=== PATIENT | male | born 1955 | race Caucasian/White ===

== ENCOUNTER 2018-07-09 23:12 | Emergency (ER) | payer OTHER ==
[2018-07-09 23:46] LABS: BASO # 0.1 10^3/uL (0.0-0.2); BASO % 0.9 % (0.0-1.0); EOS # 0.3 10^3/uL (0.0-0.50); EOS % 3.5 % (0.0-3.0); HEMATOCRIT 39.2 % (42.0-52.0); HEMOGLOBIN 13.2 g/dl (13.5-17.5); IMMATURE GRANULOCYTE % 0.7 % (0-3.0); LYMPH # 2.5 10^3/uL (1.5-4.5); LYMPH % 33.5 % (24.0-44.0); MEAN CORPUSCULAR HEMOGLOBIN 30.6 pg (27.0-33.0); MEAN CORPUSCULAR HGB CONC 33.7 g/dl (32.0-36.5); MEAN CORPUSCULAR VOLUME 90.7 fl (80.0-96.0); MONO # 0.5 10^3/uL (0.0-0.8); MONO % 7.3 % (0.0-5.0); NEUTROPHILS % 54.1 % (36.0-66.0); PLATELET COUNT, AUTOMATED 247 10^3/uL (150-450); RED BLOOD COUNT 4.32 10^6/uL (4.30-6.10); RED CELL DISTRIBUTION WIDTH 13.3 % (11.5-14.5); WHITE BLOOD COUNT 7.4 10^3/uL (4.0-10.0)
[2018-07-09] MEDS: NS 500 ML IV (23:56)
[2018-07-09 23:57] LABS: INR 0.98; PROTHROMBIN TIME 13.1 SECONDS (12.1-14.4)
[2018-07-09 23:58] LABS: PARTIAL THROMBOPLASTIN TIME 26.2 SECONDS (25.4-37.6)
[2018-07-10 00:13] LABS: ANION GAP 11 MEQ/L (8-16); BLOOD UREA NITROGEN 12 MG/DL (7-18); CALCIUM LEVEL 8.2 MG/DL (8.8-10.2); CARBON DIOXIDE LEVEL 25 MEQ/L (21-32); CHLORIDE LEVEL 105 MEQ/L (98-107); CPK CREATINE PHOSPHOKINASE 162 U/L (39-308); ETHYL ALCOHOL (ETHANOL) 0.031 % (0.000-0.010); FREE THYROXINE INDEX 3.1 % (1.4-3.8); GLOMERULAR FILTRATION RATE > 60.0 (>49); GLUCOSE, FASTING 98 MG/DL (70-100); MAGNESIUM LEVEL 1.9 MG/DL (1.8-2.4); MB/CK RELATIVE INDEX 11.11 (< OR =4); POTASSIUM SERUM 3.8 MEQ/L (3.5-5.1); SODIUM LEVEL 141 MEQ/L (136-145); T UPTAKE 36 % (33-40); THYROXINE (T4) 8.5 UG/DL (4.5-12.0); TROPONIN I 1.37 NG/ML (< 0.10)
[2018-07-10] MEDS: ASPIRIN 325 MG TAB PO (00:38)
[2018-07-10] MEDS: CLOPIDOGREL 300 MG TAB (PLAVIX) PO (00:38)
[2018-07-10] MEDS: METOPROLOL TART 25 MG TABLET PO (00:39)
[2018-07-10] MEDS: HEPARIN DRIP 25,000 UNITS in APPROPRIATE DILUENT 1 EA IV (00:55)
[2018-07-10] MEDS: HEPARIN SOD (PORCINE) 5000 UNITS/ML VIAL IV (00:56)
== END 2018-07-10 02:52 | disposition short-term general hospital (02) ==
LOC: M ED 23:12
DX: I21.4 Non-ST elevation (NSTEMI) myocardial infarction (principal); Z72.0 Tobacco use
CPT/HCPCS: 71045

== ENCOUNTER → 2018-07-21 | Outpatient (CLI) | payer OTHER ==
[2018-07-21 12:40] LABS: INR 1.69; PROTHROMBIN TIME 20.2 SECONDS (12.1-14.4)
== END ==
LOC: M WUC 10:36
DX: Z51.81 Encounter for therapeutic drug level monitoring (principal); Z79.01 Long term (current) use of anticoagulants
CPT/HCPCS: 85610

== ENCOUNTER → 2018-07-23 | Outpatient (REF) | payer OTHER ==
[2018-07-23 17:05] LABS: ANION GAP 4 MEQ/L (8-16); BLOOD UREA NITROGEN 19 MG/DL (7-18); CALCIUM LEVEL 8.9 MG/DL (8.8-10.2); CARBON DIOXIDE LEVEL 32 MEQ/L (21-32); CHLORIDE LEVEL 97 MEQ/L (98-107); CREATININE FOR GFR 0.91 MG/DL (0.70-1.30); GLOMERULAR FILTRATION RATE > 60.0 (>49); GLUCOSE, FASTING 100 MG/DL (70-100); SODIUM LEVEL 133 MEQ/L (136-145)
== END ==
LOC: M LAB REF 16:21
DX: I21.4 Non-ST elevation (NSTEMI) myocardial infarction (principal)
CPT/HCPCS: 80048

== ENCOUNTER → 2018-07-26 | Outpatient (REF) | payer OTHER ==
[2018-07-26 16:48] LABS: ANION GAP 8 MEQ/L (8-16); BLOOD UREA NITROGEN 21 MG/DL (7-18); CALCIUM LEVEL 8.7 MG/DL (8.8-10.2); CARBON DIOXIDE LEVEL 29 MEQ/L (21-32); CHLORIDE LEVEL 100 MEQ/L (98-107); CREATININE FOR GFR 1.17 MG/DL (0.70-1.30); GLOMERULAR FILTRATION RATE > 60.0 (>49); GLUCOSE, FASTING 142 MG/DL (70-100); POTASSIUM SERUM 4.7 MEQ/L (3.5-5.1); SODIUM LEVEL 137 MEQ/L (136-145)
== END ==
LOC: M LAB REF 16:25
DX: I21.4 Non-ST elevation (NSTEMI) myocardial infarction (principal)

== ENCOUNTER → 2018-07-27 | Outpatient (REF) | payer OTHER ==
[2018-07-27 13:34] LABS: ANION GAP 5 MEQ/L (8-16); BLOOD UREA NITROGEN 19 MG/DL (7-18); CALCIUM LEVEL 9.2 MG/DL (8.8-10.2); CARBON DIOXIDE LEVEL 30 MEQ/L (21-32); CHLORIDE LEVEL 98 MEQ/L (98-107); CREATININE FOR GFR 0.97 MG/DL (0.70-1.30); GLOMERULAR FILTRATION RATE > 60.0 (>49); GLUCOSE, FASTING 93 MG/DL (70-100); POTASSIUM SERUM 4.7 MEQ/L (3.5-5.1); SODIUM LEVEL 133 MEQ/L (136-145)
== END ==
LOC: M LAB REF 12:25
DX: E87.5 Hyperkalemia (principal)
CPT/HCPCS: 80048

== ENCOUNTER → 2018-07-27 | Outpatient (REF) | payer OTHER ==
[2018-07-27 13:19] LABS: PROTHROMBIN TIME 25.8 SECONDS (12.1-14.4)
== END ==
LOC: M LAB REF 12:23
DX: I48.91 Unspecified atrial fibrillation (principal)
CPT/HCPCS: 85610

== ENCOUNTER → 2018-08-12 | Outpatient (REF) | payer OTHER ==
[2018-08-12 12:13] LABS: INR 1.17; PROTHROMBIN TIME 15.1 SECONDS (12.1-14.4)
== END ==
LOC: M LAB REF 11:36
DX: I48.91 Unspecified atrial fibrillation (principal)

== ENCOUNTER 2018-08-14 09:30 | Emergency (ER) | payer OTHER ==
[2018-08-14] MEDS: METOPROLOL 5 MG/5 ML VIAL IV (10:15)
[2018-08-14] MEDS: AMIODARONE HCL 150 MG in APPROPRIATE DILUENT 1 EA IV ×2 (10:29→11:22)
[2018-08-14] MEDS: NS 500 ML IV (10:37)
[2018-08-14 10:55] LABS: BASO # 0.1 10^3/uL (0.0-0.2); EOS # 0.2 10^3/uL (0.0-0.50); EOS % 1.7 % (0.0-3.0); HEMATOCRIT 39.1 % (42.0-52.0); HEMOGLOBIN 12.7 g/dl (13.5-17.5); IMMATURE GRANULOCYTE % 0.4 % (0-3.0); LYMPH # 2.6 10^3/uL (1.5-4.5); LYMPH % 26.5 % (24.0-44.0); MEAN CORPUSCULAR HEMOGLOBIN 29.5 pg (27.0-33.0); MEAN CORPUSCULAR HGB CONC 32.5 g/dl (32.0-36.5); MEAN CORPUSCULAR VOLUME 90.7 fl (80.0-96.0); MONO # 0.8 10^3/uL (0.0-0.8); MONO % 8.1 % (0.0-5.0); NEUTROPHILS # 6.1 10^3/uL (1.8-7.7); NEUTROPHILS % 62.3 % (36.0-66.0); PLATELET COUNT, AUTOMATED 280 10^3/uL (150-450); RED BLOOD COUNT 4.31 10^6/uL (4.30-6.10); RED CELL DISTRIBUTION WIDTH 12.8 % (11.5-14.5); WHITE BLOOD COUNT 9.8 10^3/uL (4.0-10.0)
[2018-08-14 11:06] LABS: INR 1.56
[2018-08-14 11:09] LABS: ALBUMIN 3.8 GM/DL (3.2-5.2); ALBUMIN/GLOBULIN RATIO 1.06 (1.00-1.93); ALKALINE PHOSPHATASE 112 U/L (45-117); ALT/SGPT 103 U/L (12-78); ANION GAP 8 MEQ/L (8-16); AST/SGOT 52 U/L (7-37); BILIRUBIN,DIRECT < 0.1 MG/DL (0.0-0.2); BILIRUBIN,TOTAL 0.3 MG/DL (0.2-1.0); BLOOD UREA NITROGEN 19 MG/DL (7-18); CALCIUM LEVEL 9.1 MG/DL (8.8-10.2); CARBON DIOXIDE LEVEL 27 MEQ/L (21-32); CHLORIDE LEVEL 100 MEQ/L (98-107); CPK CREATINE PHOSPHOKINASE 47 U/L (39-308); CREATININE FOR GFR 1.15 MG/DL (0.70-1.30); GLOMERULAR FILTRATION RATE > 60.0 (>49); GLUCOSE, FASTING 134 MG/DL (70-100); LIPASE 161 U/L (73-393); MAGNESIUM LEVEL 2.1 MG/DL (1.8-2.4); MB/CK RELATIVE INDEX 5.32 (< OR =4); POTASSIUM SERUM 4.8 MEQ/L (3.5-5.1); SODIUM LEVEL 135 MEQ/L (136-145); TOTAL PROTEIN 7.4 GM/DL (6.4-8.2); TROPONIN I 0.04 NG/ML (< 0.10)
[2018-08-14] MEDS: NS 1,000 ML IV (13:00)
[2018-08-14] MEDS ORDERED: fentaNYL 100 MCG/2 ML INJECTION (J3010) IV ×2 (13:00→13:30)
[2018-08-14] MEDS: fentaNYL 100 MCG/2 ML INJECTION (J3010) IV (13:09)
[2018-08-14] MEDS: MIDAZOLAM INJ 2 MG/2 ML VIAL (J2250) IV (13:11)
== END 2018-08-14 15:01 | disposition home or self-care (01) ==
LOC: M ED 09:30
DX: I48.92 Unspecified atrial flutter (principal); I51.7 Cardiomegaly; I44.7 Left bundle-branch block, unspecified; I51.9 Heart disease, unspecified; Z95.2 Presence of prosthetic heart valve; Z95.1 Presence of aortocoronary bypass graft; Z79.01 Long term (current) use of anticoagulants; Z79.899 Other long term (current) drug therapy
CPT/HCPCS: J2250

== ENCOUNTER → 2018-09-09 | Outpatient (REF) | payer OTHER ==
[~2018-09-09] MED LIST: AMIO200T PO; CARV3.12 PO; DOCU100C16; WARF05TA PO
[2018-09-09 15:02] LABS: INR 1.62; PROTHROMBIN TIME 19.5 SECONDS (12.1-14.4)
== END ==
LOC: M LAB REF 13:22
PROVIDERS: ATTEND Internal Medicine Interventional Cardiology
DX: I48.91 Unspecified atrial fibrillation (principal); Z48.812 Encounter for surgical aftercare following surgery on the circulatory system

== ENCOUNTER → 2018-09-23 | Outpatient (CLI) | payer OTHER ==
[2018-09-23 10:40] LABS: INR 1.32; PROTHROMBIN TIME 16.6 SECONDS (12.1-14.4)
== END ==
LOC: M LAB 10:05
PROVIDERS: ATTEND Internal Medicine Interventional Cardiology
DX: Z79.01 Long term (current) use of anticoagulants (principal)

== ENCOUNTER → 2018-10-04 | Outpatient (CLI) | payer OTHER ==
--- NOTE | 2018-10-04 17:59 | ECHO ---
DATE OF PROCEDURE: 10/04/2018 REFERRING PHYSICIAN: Dr. Mathew Boyer INDICATION: NonSTEMI. Height 177 cm Weight 63 kg DIMENSIONS: IVS 1.0 LV 5.4 LVPW 1.0 LA 4.0 Aorta 3.1 IVC 1.6 Left atrial volume index 25 Mitral E wave velocity 98, A-wave 129 E prime septal 5.1, E prime lateral 12.8 FINDINGS: The study is of good technical quality. The patient is in sinus rhythm. Left ventricle is of normal size. There are extensive wall motion abnormalities. Distal septum, apex and small segment of distal anterior wall appear to be severely hypokinetic. There is akinesis almost dyskinesis of basal and mid-inferior wall and basal inferoseptal wall. Remaining left ventricular segments appear to have preserved contractility. I estimate LVEF around 40-45%. Right ventricle is normal size and systolic function. Left atrium is normal size, right atrium was poorly visualized but grossly appears normal as well. Aortic valve is normal. There appears to be a mitral annuloplasty ring present. Visualization was somewhat limited but the valve itself appears to have normal mobility. Tricuspid valve appears normal. Pulmonic valve was not well seen but based on limited views appears normal. No pericardial effusion is noted. Inferior vena cava is normal size. Aortic root is normal. Aortic arch and abdominal aorta also appear normal. Doppler interrogation of aortic valve reveals no stenosis or insufficiency. There is mild mitral insufficiency. The gradient across mitral valve was mean 3 mmHg and peak 9 mmHg. This represents trivial functional mitral stenosis. There is trace tricuspid insufficiency. Calculated pulmonary artery pressure is within normal limits, but quality of TR jet was poor and this should not be considered completely reliable. Pulmonic valve is functionally competent. Mitral inflow pattern and tissue Doppler imaging of mitral annulus reveal grade 1 diastolic dysfunction. CONCLUSIONS: 1. Study is of good technical quality. 2. Normal LV size with segmental wall motion abnormalities as noted above and overall LVEF estimated at 40-45%. 3. Normal aortic valve. 4. Likely status post mitral valve repair with mild insufficiency and trivial stenosis. 5. Normal central venous pressure and likely normal pulmonary artery pressure under COMMENT: SBE prophylaxis is recommended. MTDD
== END ==
LOC: M CARPUL 09:15
PROVIDERS: ATTEND Internal Medicine Interventional Cardiology
DX: I21.4 Non-ST elevation (NSTEMI) myocardial infarction (principal); I25.10 Atherosclerotic heart disease of native coronary artery without angina pectoris; I34.0 Nonrheumatic mitral (valve) insufficiency

== ENCOUNTER → 2018-10-05 | Outpatient (CLI) | payer OTHER ==
[2018-10-05 12:35] LABS: INR 1.32; PROTHROMBIN TIME 16.6 SECONDS (12.1-14.4)
== END ==
LOC: M WUC 10:38
PROVIDERS: ATTEND Internal Medicine Interventional Cardiology
DX: I48.0 Paroxysmal atrial fibrillation (principal)

== ENCOUNTER → 2018-10-21 | Outpatient (CLI) | payer OTHER ==
[2018-10-21 13:49] LABS: INR 1.45; PROTHROMBIN TIME 17.9 SECONDS (12.1-14.4)
== END ==
LOC: M WUC 10:58
PROVIDERS: ATTEND Internal Medicine Interventional Cardiology
DX: I48.0 Paroxysmal atrial fibrillation (principal)

== ENCOUNTER → 2018-11-04 | Outpatient (CLI) | payer OTHER ==
[2018-11-04 13:29] LABS: BLOOD UREA NITROGEN 20 MG/DL (7-18); CALCIUM LEVEL 9.1 MG/DL (8.8-10.2); CARBON DIOXIDE LEVEL 28 MEQ/L (21-32); CHLORIDE LEVEL 105 MEQ/L (98-107); CREATININE FOR GFR 0.94 MG/DL (0.70-1.30); GLOMERULAR FILTRATION RATE > 60.0 (>49); GLUCOSE, FASTING 98 MG/DL (70-100); POTASSIUM SERUM 4.5 MEQ/L (3.5-5.1); SODIUM LEVEL 141 MEQ/L (136-145)
== END ==
LOC: M WUC 08:39
PROVIDERS: ATTEND Nurse Practitioner
DX: I48.91 Unspecified atrial fibrillation (principal)

== ENCOUNTER → 2018-11-18 | Outpatient (CLI) | payer OTHER ==
[2018-11-18 13:41] LABS: INR 1.32; PROTHROMBIN TIME 16.6 SECONDS (12.1-14.4)
== END ==
LOC: M WUC 09:10
PROVIDERS: ATTEND Internal Medicine Interventional Cardiology
DX: I48.0 Paroxysmal atrial fibrillation (principal)

== ENCOUNTER → 2018-11-25 | Outpatient (CLI) | payer OTHER ==
[2018-11-25 10:03] LABS: INR 1.35; PROTHROMBIN TIME 16.9 SECONDS (12.1-14.4)
== END ==
LOC: M WUC 08:23
PROVIDERS: ATTEND Internal Medicine Interventional Cardiology
DX: I48.0 Paroxysmal atrial fibrillation (principal)

== ENCOUNTER → 2018-12-08 | Outpatient (CLI) | payer OTHER ==
[2018-12-08 12:56] LABS: INR 1.74; PROTHROMBIN TIME 20.6 SECONDS (12.1-14.4)
== END ==
LOC: M WUC 08:31
PROVIDERS: ATTEND Internal Medicine Interventional Cardiology
DX: I48.0 Paroxysmal atrial fibrillation (principal)

== ENCOUNTER → 2019-01-14 | Outpatient (CLI) | payer OTHER ==
[2019-01-14 13:25] LABS: INR 1.97; PROTHROMBIN TIME 22.8 SECONDS (12.1-14.4)
== END ==
LOC: M WUC 09:36
PROVIDERS: ATTEND Internal Medicine Interventional Cardiology
DX: I48.0 Paroxysmal atrial fibrillation (principal)

== ENCOUNTER → 2019-02-16 | Outpatient (CLI) | payer OTHER ==
[2019-02-16 13:27] LABS: INR 1.57
== END ==
LOC: M WUC 09:01
PROVIDERS: ATTEND Internal Medicine Interventional Cardiology
DX: I48.0 Paroxysmal atrial fibrillation (principal)

== ENCOUNTER → 2019-02-24 | Outpatient (CLI) | payer OTHER ==
[2019-02-24 13:13] LABS: INR 1.76; PROTHROMBIN TIME 20.3 SECONDS (11.8-14.0)
== END ==
LOC: M WUC 09:39
PROVIDERS: ATTEND Internal Medicine Interventional Cardiology
DX: I48.0 Paroxysmal atrial fibrillation (principal)

== ENCOUNTER → 2019-03-21 | Outpatient (CLI) | payer OTHER ==
[~2019-03-21] MED LIST changes: +ATOR40TA75; +XARE20TA
[2019-03-21 12:37] LABS: CHOLESTEROL RISK RATIO 2.625 (<5)
== END ==
LOC: M WUC 08:28
PROVIDERS: ATTEND Nurse Practitioner Adult Health
DX: I25.10 Atherosclerotic heart disease of native coronary artery without angina pectoris (principal); Z98.890 Other specified postprocedural states; E78.00 Pure hypercholesterolemia, unspecified

== ENCOUNTER 2019-05-30 09:14 | Emergency (ER) | payer OTHER ==
[~2019-05-30] VITALS: Ht 177.8 cm; Wt 74.0 kg
[~2019-05-30 09:14] MED LIST changes: -ATOR40TA75; -XARE20TA
[2019-05-30] MEDS ORDERED: ATOR40TA75 (09:34)
[2019-05-30] MEDS ORDERED: XARE20TA (09:34)
[2019-05-30] MEDS ORDERED: MIDAZOLAM INJ 5 MG/ML VIAL (J2250) As Ordered ONE ×2 (09:39→09:53)
[2019-05-30] MEDS ORDERED: ONDANSETRON 4MG/2ML VIAL (J2405) As Ordered ONE (09:46)
[2019-05-30 09:50] LABS: BASO # 0.1 10^3/uL (0.0-0.2); BASO % 0.8 % (0.0-1.0); EOS # 0.1 10^3/uL (0.0-0.5); EOS % 0.4 % (0.0-3.0); HEMOGLOBIN 14.9 g/dl (13.5-17.5); LYMPH # 2.8 10^3/uL (1.5-5.0); LYMPH % 23.8 % (24.0-44.0); MEAN CORPUSCULAR HEMOGLOBIN 30.5 pg (27.0-33.0); MEAN CORPUSCULAR HGB CONC 33.9 g/dl (32.0-36.5); MONO # 1.2 10^3/uL (0.0-0.8); NEUTROPHILS # 7.5 10^3/uL (1.5-8.5); NEUTROPHILS % 64.4 % (36.0-66.0); PLATELET COUNT, AUTOMATED 235 10^3/uL (150-450); RED BLOOD COUNT 4.89 10^6/uL (4.30-6.10); WHITE BLOOD COUNT 11.7 10^3/uL (4.0-10.0)
[2019-05-30] MEDS ORDERED: MIDAZOLAM INJ 2 MG/2 ML VIAL (J2250) IV STA (09:56)
[2019-05-30] MEDS ORDERED: NS 250 ML IV ONE (10:00)
[2019-05-30] MEDS ORDERED: MIDAZOLAM INJ 2 MG/2 ML VIAL (J2250) IV ONE (10:00)
[2019-05-30 10:03] LABS: INR 1.53; PROTHROMBIN TIME 18.1 SECONDS (11.8-14.0)
--- NOTE | 2019-05-30 10:09 | REP ---
CHEST, SINGLE VIEW: Single view of the chest is performed and compared to a prior study 08/14/2018. There is chronic elevation of the left hemidiaphragm with mild fibrotic changes at the left base. No acute infiltrate is seen. Heart is normal is normal in size. Mediastinal silhouette is unremarkable and unchanged. There are multiple sternal wires present. IMPRESSION: Chronic changes left base. No acute infiltrate. Electronically Signed by Sonu Peralta MD 05/31/2019 09:51 A
[2019-05-30 10:31] LABS: BILIRUBIN,DIRECT 0.2 MG/DL (0.0-0.2); BILIRUBIN,TOTAL 0.8 MG/DL (0.2-1.0); CALCIUM LEVEL 9.3 MG/DL (8.8-10.2); CREATININE FOR GFR 1.53 MG/DL (0.70-1.30); GLOMERULAR FILTRATION RATE 49.2 (>49); POTASSIUM SERUM 5.5 MEQ/L (3.5-5.1); TOTAL PROTEIN 7.6 GM/DL (6.4-8.2)
[2019-05-30 11:13] LABS: INFLUENZA A AMPLIFICATION NEGATIVE (NEGATIVE); INFLUENZA B AMPLIFICATION NEGATIVE (NEGATIVE)
[2019-05-30 11:14] LABS: FREE T4 0.95 NG/DL (0.76-1.46); THYROID STIMULATING HORMONE 0.864 uIU/ML (0.358-3.740)
[2019-05-30 11:19] LABS: CK-MB VALUE MASS 3.1 NG/ML (<3.6); MB/CK RELATIVE INDEX 2.44 (< OR =4); TROPONIN I 0.05 NG/ML (< 0.10)
[2019-05-30 12:27] LABS: MB/CK RELATIVE INDEX 3.9 (< OR =4); TROPONIN I 0.06 NG/ML (< 0.10)
[2019-05-30 13:00] VITALS: BP 135/70
--- NOTE | 2019-05-30 21:33 | ECGEPIP ---
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
--- NOTE | 2019-05-30 21:35 | ECGEPIP ---
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
== END 2019-05-30 13:17 | disposition short-term general hospital (02) ==
LOC: M ED 09:14
DX: R00.2 Palpitations (principal); I48.91 Unspecified atrial fibrillation; I25.10 Atherosclerotic heart disease of native coronary artery without angina pectoris; I25.2 Old myocardial infarction
CPT/HCPCS: 36415; 71045; 80048; 80076; 82550; 82553; 83605; 83690; 83735; 83880; 84439; 84443; 84484; 85025; 85610; 87040; 87502; 93005; 93041; 94760; 96361; 96374; 99285; J2250

== ENCOUNTER → 2019-11-07 | Outpatient (CLI) | payer OTHER ==
[~2019-11-07] MED LIST changes: +ATOR40TA75; +XARE20TA
--- NOTE | 2019-11-08 19:03 | ECHO ---
DATE OF PROCEDURE: 11/07/2019 REFERRING PROVIDER: Anastasiya Hsu NP INDICATION: Coronary artery disease Height 177 cm, weight 63 kg. DIMENSIONS: IVS: 0.9 LV: 5.6 LVPW: 1.0 LA: 4.3 Aorta: 3.2 RV: 3.0 Left atrial volume index: 30 IVC: 1.3 Mitral E wave velocity: 112 A wave: 98 E prime septal: 7.7 E prime lateral: 10.0 FINDINGS: The study is of good technical quality. The patient is in sinus rhythm with wide QRS complex and occasional premature ventricular contraction (PVC). Left ventricle is borderline dilated. There are two separate segmental wall motion abnormalities. Distal septum, distal anterior wall and apex are essentially akinetic. Same applies for basal septum, basal and mid inferior wall. Overall left ventricular ejection fraction is estimated around 30-35%. Right ventricle does not appear grossly dilated. There is biatrial enlargement. There is an echo artifact in right-sided heart chambers corresponding to pacemaker or implantable cardioverter defibrillator (ICD) electrode. Aortic valve is normal. It has three cusps, normal mobility and no calcifications. There is mitral annuloplasty ring present. Otherwise mobility of mitral leaflets is preserved. Tricuspid valve appears normal. Pulmonic valve also appears normal. No pericardial effusion is noted. Inferior vena cava is normal size. Aortic root is normal. Limited views of aortic arch also appear normal. Abdominal aorta was not well seen. Doppler interrogation of aortic valve reveals no stenosis and no insufficiency. There is [id number] mitral insufficiency. Peak gradient across mitral valve is 6 and mean gradient 2 mmHg. There is trace tricuspid insufficiency. Calculated pulmonary artery pressure is within normal limits. Pulmonic valve is functionally competent. Mitral inflow pattern and tissue Doppler imaging of mitral annulus reveals likely normal diastolic function even though tissue Doppler velocities of mitral annulus are mildly reduced. CONCLUSIONS: 1. Study is of good technical quality. The patient is in sinus rhythm. 2. Borderline enlarged left ventricular (LV) size with segmental wall motion abnormalities as noted above and overall estimated left ventricular ejection fraction (LVEF) approximately 30-35% (computer-calculated LVEF was 31%). Probably normal diastolic function. 3. Normal aortic valve. 4. [id number] mitral insufficiency and no significant stenosis after mitral valve repair. 5. Normal central venous pressure and likely normal pulmonary artery pressure. 6. Presence of implantable cardioverter defibrillator (ICD) or pacemaker electrode in right-sided heart chambers.
== END ==
LOC: M CARPUL 10:11
PROVIDERS: ATTEND Nurse Practitioner Adult Health
DX: I25.10 Atherosclerotic heart disease of native coronary artery without angina pectoris (principal); I34.0 Nonrheumatic mitral (valve) insufficiency; Z95.0 Presence of cardiac pacemaker

== ENCOUNTER 2021-08-05 09:11 | Emergency (ER) | payer OTHER ==
[~2021-08-05] VITALS: Ht 177.8 cm; Wt 70.4 kg
[~2021-08-05 09:11] MED LIST changes: -AMIO200T PO; +AMIO200T49 PO
[2021-08-05 09:48] LABS: BASO # 0.1 10^3/uL (0.0-0.2); BASO % 1.2 % (0.0-1.0); EOS # 0.4 10^3/uL (0.0-0.5); EOS % 4.8 % (0.0-3.0); HEMATOCRIT 42.2 % (42.0-52.0); HEMOGLOBIN 13.9 g/dl (13.5-17.5); LYMPH # 1.7 10^3/uL (1.5-5.0); MEAN CORPUSCULAR HEMOGLOBIN 29.7 pg (27.0-33.0); MEAN CORPUSCULAR HGB CONC 32.9 g/dl (32.0-36.5); MEAN CORPUSCULAR VOLUME 90.2 fl (80.0-96.0); MONO # 0.9 10^3/uL (0.0-0.8); MONO % 10.6 % (2.0-8.0); NEUTROPHILS # 5.6 10^3/uL (1.5-8.5); NEUTROPHILS % 64.1 % (36.0-66.0); PLATELET COUNT, AUTOMATED 259 10^3/uL (150-450); RED BLOOD COUNT 4.68 10^6/uL (4.30-6.10); WHITE BLOOD COUNT 8.7 10^3/uL (4.0-10.0)
[2021-08-05 10:46] LABS: BLOOD UREA NITROGEN 19 MG/DL (7-18); CALCIUM LEVEL 9.5 MG/DL (8.8-10.2); CARBON DIOXIDE LEVEL 28 MEQ/L (21-32); CHLORIDE LEVEL 103 MEQ/L (98-107); CREATININE FOR GFR 1.01 MG/DL (0.70-1.30); GLOMERULAR FILTRATION RATE > 60.0 (>49); GLUCOSE, FASTING 107 MG/DL (70-100); MAGNESIUM LEVEL 2.2 MG/DL (1.8-2.4); POTASSIUM SERUM 4.5 MEQ/L (3.5-5.1); SODIUM LEVEL 136 MEQ/L (136-145); THYROID STIMULATING HORMONE 0.753 uIU/ML (0.358-3.740)
[2021-08-05 12:31] LABS: RSV AMPLIFICATION NEGATIVE (NEGATIVE)
[2021-08-05] MEDS ORDERED: LISI5TAB11 (13:15)
[2021-08-05] MEDS ORDERED: EZET10TA21 (13:15)
[2021-08-05] MEDS ORDERED: ATOR80TA59 (13:15)
[2021-08-05 13:45] VITALS: BP 141/83
== END 2021-08-05 14:00 | disposition short-term general hospital (02) ==
LOC: M ED 09:11
DX: I47.2 Ventricular tachycardia (principal); T82.897A Other specified complication of cardiac prosthetic devices, implants and grafts, initial encounter; I25.10 Atherosclerotic heart disease of native coronary artery without angina pectoris; I25.2 Old myocardial infarction; Z79.899 Other long term (current) drug therapy

== ENCOUNTER → 2022-04-15 | Outpatient (CLI) | payer OTHER ==
[~2022-04-15] MED LIST changes: +ATOR80TA59; +EZET10TA21; +LISI5TAB11
== END ==
LOC: M RAD 12:46
PROVIDERS: ATTEND Family Medicine
DX: Z12.2 Encounter for screening for malignant neoplasm of respiratory organs (principal); F17.201 Nicotine dependence, unspecified, in remission; R91.8 Other nonspecific abnormal finding of lung field

== ENCOUNTER → 2022-04-28 | Outpatient (CLI) | payer OTHER | LOC: M PLARAD 13:31 | PROVIDERS: ATTEND Family Medicine | DX: R91.1 Solitary pulmonary nodule (principal); J98.11 Atelectasis | CPT/HCPCS: 78815; A9552 ==

== ENCOUNTER → 2024-02-04 | Outpatient (CLI) | payer MEDICARE ==
[~2024-02-04] MED LIST changes: -ATOR80TA59; +ATOR80TA59 PO; +CARV6.25 PO; +ENTR1TAB PO; -EZET10TA21; +EZET10TA21 PO; -XARE20TA; +XARE20TA PO
== END ==
LOC: M RAD 08:48
PROVIDERS: ATTEND Family Medicine
DX: Z12.2 Encounter for screening for malignant neoplasm of respiratory organs (principal); F17.201 Nicotine dependence, unspecified, in remission; R91.8 Other nonspecific abnormal finding of lung field